=== PATIENT | female | born 1965 | race Hispanic/Latino ===

== ENCOUNTER 2018-07-07 06:01 | Emergency (ER) | payer BC ==
[~2018-07-07] VITALS: Ht 160 cm; Wt 99.8 kg
[~2018-07-07 06:01] MED LIST: NEXIUM PO
[2018-07-07] MEDS ORDERED: SODIUM CHLORIDE 0.9% 1000ML 1,000 ML IV SCH ×2 (06:30→07:30)
[2018-07-07] MEDS ORDERED: FENTANYL CITRATE/PF 100MCG/2 ML INJ IV ONE (06:30)
[2018-07-07] MEDS ORDERED: PROMETHAZINE HCL (IM) 25 MG/ML VIAL IM ONE (06:30)
--- NOTE | 2018-07-07 06:50 | NUR ---
RECEIVED REPORT FROM [facility]
--- NOTE | 2018-07-07 07:11 | NUR ---
[facility] CALLED FOR TRANSFER FOR IMAGING. PT AND AWARE OF POC
--- NOTE | 2018-07-07 08:14 | NUR ---
IMAGING ABLE TO BE DONE AT [facility] PER DAWN [facility] CANCELLED. PT UPDATED ON POC
--- NOTE | 2018-07-07 09:30 | NUR ---
PT RESTING, VITAL SIGNS STABLE. PT VOICES NO COMPLAINTS AT THIS TIME.
[2018-07-07 10:32] VITALS: BP 147/85
--- NOTE | 2018-07-07 10:55 | Diagnostic Imaging Report ---
Examination: Cervical and Intracranial CT Angiogram with Contrast History: Headache. Comparison studies: None Technique: Axial images were obtained from the thoracic inlet. Coronal and sagittal images reconstructed from the axial data. Intravenous contrast: 98 mL of Isovue 370. Degree of stenosis at the carotid bulbs, if present, will be calculated using NASCET criteria where the smallest diameter at the location of stenosis is compared to the diameter of the more distal non-diseased vessel lumen. Computer generated maximum intensity projection and 3D images of the cervical and intracranial anterior and posterior circulations were performed on a separate workstation. Dose modulation, iterative reconstruction, and/or weight based adjustment of the mA/kV was utilized to reduce the radiation dose to as low as reasonably achievable. Findings: CTA neck: Aortic arch and major vessels: Patent. Common carotid arteries: Patent Cervical carotid bifurcations: Right: Patent. Left :Patent. Internal carotid arteries: Right: Patent. Left: Patent. Vertebral arteries: Patent. CTA head: Internal carotid arteries: Patent. Anterior cerebral arteries: Patent A1 and A2. Middle cerebral arteries: Patent M1 and M2. Posterior cerebral arteries: Patent with direct/ origin on the left. Vertebro-basilar system: Patent. Anatomical variants: Anterior communicating artery :Present Posterior communicating arteries: Not visualized on the right. Vertebral arteries: Left dominant. IMPRESSION: No cervical or intracranial arterial stenosis or occlusion or vascular malformation. Signed by: Dr. Angeli Ghotra M.D. on 07/07/2018 10:52 AM
--- NOTE | 2018-07-07 11:30 | NUR ---
PT SLEEPING, VITAL SIGNS STABLE. AT BEDSIDE.
--- NOTE | 2018-07-07 13:04 | Diagnostic Imaging Report ---
Examination: CT head without contrast Clinical Indication: Headache for the past 2 weeks. Technique: Transaxial noncontrast images from the skull base through the vertex were obtained. Sagittal and coronal reformatted images were done. Dose modulation, iterative reconstruction, and/or weight based adjustment of the mA/kV was utilized to reduce the radiation dose to as low as reasonably achievable. Comparison: None. Findings: Scalp: No abnormalities. Bones: Intact. No fractures. No blastic or lytic lesions. Brain sulci: Appropriate for patient's age. Ventricles: Normal in size and configuration. No hydrocephalus. Extra-axial space: No abnormalities. Parenchyma: No abnormal densities. No masses, hemorrhage, or acute or chronic cortical based vascular insults. Suprasellar region: No abnormalities. Craniocervical junction: The foramen magnum is patent. No Chiari one malformation. Impression: No intracranial abnormality. Signed by: Dr. Angeli Ghotra M.D. on 07/07/2018 1:01 PM
--- NOTE | 2018-07-07 13:07 | Diagnostic Imaging Report ---
Examination: CT cervical spine without contrast HISTORY:Neck pain. COMPARISON:None. TECHNIQUE: Multidetector helical axial images were obtained without contrast from the foramen magnum to T1. Coronal and sagittal reformatted images were done. Bone and soft tissue windows were evaluated. Dose modulation, iterative reconstruction, and/or weight based adjustment of the mA/kV was utilized to reduce the radiation dose to as low as reasonably achievable. FINDINGS: Alignment:Straightening of normal lordosis with normal alignment. Vertebrae: Normal height and density. No acute fracture, infection or neoplasm. Disc space heights: Normal height. Caliber of spinal canal: Developmentally normal. Posterior fossa and craniocervical junction: Foramen magnum patent. No Chiari 1 malformation. Soft tissues: No abnormality. Degenerative changes: C4-C5: Left central disc osteophyte protrusion without significant canal stenosis. C5-C6: Diffuse disc bulge without significant canal stenosis. The remaining cervical levels demonstrate no disc herniation or canal stenosis.. Visualized lung apices: No abnormalities. IMPRESSION: 1. No acute abnormalities. 2. Mild degenerative changes at C4-C5 and C5-C6 without significant canal stenosis. Signed by: Dr. Angeli Ghotra M.D. on 07/07/2018 1:04 PM
== END 2018-07-07 13:26 | disposition home or self-care (01) ==
LOC: FSED 06:01
DX: R51 Headache (principal); I10 Essential (primary) hypertension
CPT/HCPCS: 70450; 70470; 70491; 70496; 70498; 72125; 80053; 81003; 85025; 99284; J2550

== ENCOUNTER 2021-12-27 19:51 | Emergency (ER) | payer BC, OTHER ==
[~2021-12-27] VITALS: Ht 160 cm; Wt 88.9 kg
[2021-12-27] MEDS ORDERED: HYDROCODONE/APAP 10MG-325MG TAB PO STA (20:25)
[2021-12-27] MEDS ORDERED: KETAMINE HCL INJ 50 MG/ML 10 ML VIAL IV STA (21:06)
[2021-12-27] MEDS ORDERED: PROPOFOL IV EMULSION 10 MG/ML 20 ML VIAL IV STA (21:07)
[2021-12-27 22:30] VITALS: BP 129/68
[2021-12-27] MEDS ORDERED: ONDANSETRON ODT4 MG PO (23:07)
[2021-12-27] MEDS ORDERED: ACETAMINOPHEN-1 EAC4 PO (23:07)
[2021-12-27] MEDS ORDERED: ONDANSETRON HCL 4 MG ORAL DISINTEGRATING TAB PO ONE (23:30)
[2021-12-27] MEDS ORDERED: ONDANSETRON HCL 4 MG ORAL DISINTEGRATING TAB ONE (23:39)
== END 2021-12-27 23:53 | disposition home or self-care (01) ==
LOC: ER 20:09
DX: S43.101A Unspecified dislocation of right acromioclavicular joint, initial encounter (principal); W18.30XA Fall on same level, unspecified, initial encounter; Y93.01 Activity, walking, marching and hiking; Y92.89 Other specified places as the place of occurrence of the external cause
CPT/HCPCS: 23545; 73000; 73020; 73030; 99284; J2704; Q0162

== ENCOUNTER 2024-08-15 08:44 | Emergency (ER) | payer BC ==
[~2024-08-15] VITALS: Ht 160 cm; Wt 88.9 kg
[~2024-08-15 08:44] MED LIST changes: +ACETAMINOPHEN-1 EAC4 PO; +ONDANSETRON ODT4 MG PO
[2024-08-15 08:50] VITALS: PULSE 74; RESP 18; TEMP 98.3; O2SAT 99
[2024-08-15 09:31] LABS: BASOPHILS % 0.4 % (0.0-1.0); EOSINOPHILS # (AUTO) 0.1 (0.0-0.4); EOSINOPHILS % 1.8 % (0.0-6.0); HEMATOCRIT 46.9 % (34.2-44.1); LYMPHOCYTES # (AUTO) 1.5 (1.0-3.2); LYMPHOCYTES % 31.6 % (18.0-39.1); MEAN CORPUSCULAR HEMOGLOBIN 28.4 pg (28-32); MEAN CORPUSCULAR VOLUME 88.7 fL (81-99); MONOCYTES # (AUTO) 0.6 (0.2-0.8); MONOCYTES % 12.1 % (4.4-11.3); NEUTROPHILS # (AUTO) 2.6 (2.1-6.9); NEUTROPHILS % 53.9 % (38.7-80.0); PLATELET COUNT 191 x10e3/uL (140-360); RED BLOOD COUNT 5.29 x10e6/uL (3.6-5.1); RED CELL DISTRIBUTION WIDTH 14.5 % (11.7-14.4); WHITE BLOOD COUNT 4.88 x10e3/uL (4.8-10.8)
[2024-08-15] MEDS: MECLIZINE HCL 12.5 MG TAB PO ONE (09:56)
[2024-08-15 10:13] LABS: ALBUMIN 3.6 g/dL (3.5-5.0); ALBUMIN/GLOBULIN RATIO 1.2 (0.8-2.0); ANION GAP 12.2 mmol/L (8-16); BILIRUBIN,TOTAL 0.4 mg/dL (0.2-1.2); CALCIUM 8.5 mg/dL (8.4-10.2); CREATININE, SERUM 0.8 mg/dL (0.57-1.11); TOTAL PROTEIN 6.7 g/dL (6.5-8.1)
[2024-08-15 10:15] LABS: POTASSIUM 3.2 mmol/L (3.5-5.1)
[2024-08-15] MEDS ORDERED: MECLIZINE HCL12.5 MG PO (11:02)
== END 2024-08-15 11:33 | disposition home or self-care (01) ==
LOC: ER 08:58
DX: R42 Dizziness and giddiness (principal); N18.6 End stage renal disease; R94.31 Abnormal electrocardiogram [ECG] [EKG]
CPT/HCPCS: 36415; 70450; 80053; 84484; 85025; 93005; 99284; J8597